=== PATIENT | female | born 1965 ===

== ENCOUNTER 2017-05-14 20:31 | Observation (INO) | payer MEDICARE, OTHER ==
--- NOTE | 2017-05-14 21:33 | C.PDOC ---
History Of Present Illness 51 year old female with a Hx of HTN, previous stroke, and cholecystectomy presents to the ER today with a complaint of left sided chest pain that she describes as heaviness since yesterday, associate with subjective SOB. Denies fever or other complaints. Time Seen by Provider: 05/14/17 21:19 Chief Complaint (Nursing): Chest Pain History Per: Patient History/Exam Limitations: no limitations Onset/Duration Of Symptoms: Hrs Current Symptoms Are (Timing): Still Present Quality: Other (Heaviness) Associated Symptoms: denies: Nausea, Dyspnea, Diaphoresis, Syncope Modifying Factors: None Exacerbating Factors: None Alleviating Factors: None Recent travel outside of the [place]: No Past Medical History Reviewed: Historical Data, Nursing Documentation, Vital Signs Vital Signs: Last Vital Signs Temp 97.9 F 05/15/17 15:40 Pulse 68 05/15/17 15:40 Resp 18 05/15/17 15:40 BP 100/69 05/15/17 15:40 Pulse Ox 100 05/15/17 15:40 - Medical History PMH: Anemia, Asthma, Depression, HTN Surgical History: Back Surgery Family History: States: Unknown Family Hx - Social History Hx Alcohol Use: No Hx Substance Use: No - Immunization History Hx Tetanus Toxoid Vaccination: No Hx Influenza Vaccination: No Hx Pneumococcal Vaccination: No Review Of Systems Constitutional: Negative for: Fever, Chills Cardiovascular: Positive for: Chest Pain. Negative for: Palpitations Respiratory: Positive for: Shortness of Breath (Subjective) Gastrointestinal: Negative for: Nausea, Vomiting Physical Exam - Physical Exam Appears: Non-toxic Skin: Normal Color, Warm, Dry Head: Atraumatic, Normacephalic Eye(s): bilateral: Normal Inspection Oral Mucosa: Moist Chest: Symmetrical Cardiovascular: Rhythm Regular Respiratory: Normal Breath Sounds, No Rales, No Rhonchi, No Wheezing Gastrointestinal/Abdominal: Soft, Tenderness (Mild RUQ), No Guarding, No Rebound Extremity: Normal ROM (x4) Neurological/Psych: Oriented x3, Normal Speech ED Course And Treatment - Laboratory Results Result Diagrams: 05/14/17 21:54 05/14/17 21:54 ECG: Interpreted By Me, Viewed By Me ECG Rhythm: Sinus Rhythm ECG Interpretation: Normal Interpretation Of ECG: Nonspecific ST/T wave changes. No previous for comparison. Rate From EC O2 Sat by Pulse Oximetry: 100 (Room air) Pulse Ox Interpretation: Normal Medical Decision Making Medical Decision Making: cp ro acs- labs imaging pediing Plan: * Blood work * CXR * EKG * Urinalysis * labs unremarkable. pt with persistent abd ttp. ct added. case discussed with dr douglas, accepts for admission. pt took asa today. Disposition - Disposition Disposition: HOSPITALIZED Disposition Time: 01:00 Condition: STABLE - Clinical Impression Clinical Impression: Chest pain, Ileus - Scribe Statement The provider has reviewed the documentation as recorded by the Scribe Declan Moss All medical record entries made by the Vidhyaibe were at my direction and personally dictated by me. I have reviewed the chart and agree that the record accurately reflects my personal performance of the history, physical exam, medical decision making, and the department course for this patient. I have also personally directed, reviewed, and agree with the discharge instructions and disposition. Decision To Admit - Pt Status Changed To: Hospital Disposition Of: Observation - . Bed Request Type: Telemetry Admitting Physician: Claire Douglas Patient Diagnosis: Chest pain, Ileus
[2017-05-14 21:59] LABS: BASO % 0.6 % (0.0-2.0); EOS # 0.2 K/uL (0.0-0.7); EOS % 2.5 % (0.0-4.0); HEMOGLOBIN 11.7 g/dL (11.0-16.0); LYMPH # 2.7 K/uL (1.0-4.3); LYMPH % 44.6 % (20.0-40.0); MEAN CELL VOLUME 77.1 fL (81.0-99.0); MEAN CORPUSCULAR HEMOGLOBIN 24.6 pg (27.0-31.0); MEAN CORPUSCULAR HGB CONC 31.8 g/dL (33.0-37.0); MEAN PLATELET VOLUME 7.8 fL (7.2-11.7); MONO # 0.5 K/uL (0.0-0.8); MONO % 7.5 % (0.0-10.0); NEUT # 2.7 K/uL (1.8-7.0); NEUT % 44.8 % (50.0-75.0); NRBC % 0.1 % (0.0-2.0); RBC 4.77 Mil/uL (3.80-5.20); RED CELL DISTRIBUTION WIDTH 20.3 % (11.5-14.5); WHITE BLOOD COUNT 6.1 K/uL (4.8-10.8)
[2017-05-14 22:09] LABS: D DIMER < 200 ng/mlDDU (0-243); PARTIAL THROMBOPLASTIN TIME 36 SECONDS (21-34); PROTHROMBIN TIME 11.2 SECONDS (9.7-12.2)
[2017-05-14 22:11] LABS: ALB/GLOB RATIO 1.1 (1.0-2.1); ALBUMIN 4.2 g/dL (3.5-5.0); ALT/SGPT 28 U/L (9-52); AST/SGOT 25 U/L (14-36); BILIRUBIN,DIRECT 0.4 mg/dL (0.0-0.4); BLOOD UREA NITROGEN 10 mg/dL (7-17); CALCIUM 8.7 mg/dl (8.6-10.4); GFR AFRICAN-AMERICAN > 60; GFR NON-AFRICAN AMERICAN > 60; LIPASE 31 U/L (23-300)
[2017-05-14 22:53] LABS: B-TYPE NATRIURETIC PEPTIDE 41.9 pg/mL (0-900)
[2017-05-14] MEDS ORDERED: Iodixanol 320 MG/ML 100 ML BOTTLE IV ONE (23:15)
[2017-05-14 23:32] LABS: SQUAMOUS EPITHIAL 3 /hpf (0-5); URINE BILIRUBIN NEGATIVE (NEGATIVE); URINE BLOOD NEGATIVE (NEGATIVE); URINE CLARITY Clear (Clear); URINE COLOR Yellow (YELLOW); URINE GLUCOSE (UA) NORMAL (Normal); URINE LEUKOCYTE ESTERASE NEG Leu/uL (Negative); URINE PROTEIN NEGATIVE (NEGATIVE)
--- NOTE | 2017-05-15 00:16 | CT ---
EXAM: CT Abdomen and Pelvis With Intravenous Contrast EXAM DATE/TIME: 05/14/2017 11:07 PM CLINICAL HISTORY: 51 years old, female; Pain; Abdominal pain and other: Right lower pain; Prior surgery; Surgery type: Gastric pypass and back surgery; Additional info: Ruq/right flank pain TECHNIQUE: Axial computed tomography images of the abdomen and pelvis with intravenous contrast. All CT scans at this facility use one or more dose reduction techniques, viz.: automated exposure control; ma/kV adjustment per patient size (including targeted exams where dose is matched to indication; i.e. head); or iterative reconstruction technique. Coronal and sagittal reformatted images were created and reviewed. CONTRAST: 100 mL of [id number] administered intravenously. COMPARISON: There are no prior studies for comparison. FINDINGS: Lower thorax: The heart is mildly enlarged. There is a hiatal hernia. There is dependent atelectasis at the lung bases. There is scarring at the lung bases. ABDOMEN: Liver: There is fatty infiltration of the liver. Gallbladder and bile ducts: Gallbladder is absent.There is prominence of the common duct. Pancreas: Pancreas is mildly atrophic. Spleen: unremarkable Adrenals: unremarkable Kidneys and ureters: unremarkable Stomach and bowel: There postsurgical changes of gastric bypass. Small bowel of the Filipe loop is mildly distended with fluid. There is mild gaseous distention of jejunal loops distal to the gastrojejunal anastomosis. There is a large bolus of enteric contents of the enteral anastomosis. Small bowel distal to the anastomosis is mildly dilated and filled with air and fluid. There is fecalization of the terminal ileum. Appendix is unremarkable. Colon is incompletely distended which limits evaluation.There is diverticulosis. Appendix: See stomach and bowel PELVIS: Bladder: unremarkable Reproductive: Uterus and adnexal structures are unremarkable. ABDOMEN and PELVIS: Intraperitoneal space: There is no free air or free fluid. Bones/joints: There are degenerative changes in the osseus structures. Soft tissues: There is a small fat containing umbilical hernia. Vasculature: There are calcified phleboliths. There are vascular calcifications. Lymph nodes: There is no pathologic adenopathy. IMPRESSION: Prominent common duct status post cholecystectomy; fatty liver, no acute solid visceral abnormality; gastric bypass, large enteric bolus at the anastomosis mild distention of the Filipe loop and proximal jejunum suggesting partial obstruction; mild distention of distal small bowel with air and fluid more suggestive of ileus than obstruction; no CT findings of appendicitis or diverticulitis Additional nonemergent findings as described above.
[2017-05-15] MEDS ORDERED: Sodium Chloride 0.9% 1,000 ML IV SCH (01:00)
--- NOTE | 2017-05-15 09:02 | RAD ---
PROCEDURE: CHEST RADIOGRAPH, 1 VIEW HISTORY: chest pain COMPARISON: None available. FINDINGS: LUNGS: Clear. PLEURA: No pneumothorax or pleural fluid seen. CARDIOVASCULAR: Normal. OSSEOUS STRUCTURES: No significant abnormalities. VISUALIZED UPPER ABDOMEN: Normal. OTHER FINDINGS: None. IMPRESSION: No active disease.
[2017-05-15] MEDS ORDERED: Oxycodone/Acetaminophen 5/325 mg Tab PO PRN (09:36)
[2017-05-15] MEDS ORDERED: Home Med 1 UNIT (Meloxicam [Mobic] 15 MG) PO SCH (10:00)
[2017-05-15] MEDS ORDERED: Home Med 1 UNIT (Omeprazole [Omeprazole] 40 MG) PO SCH (10:00)
[2017-05-15] MEDS ORDERED: Home Med 1 UNIT (Acarbose [Precose] 100 MG) PO SCH (10:00)
[2017-05-15 12:11] LABS: CK-MB < 0.22 ng/mL (0.0-3.38)
[2017-05-15] MEDS: Enoxaparin 40 mg Syringe SC SCH (12:12)
[2017-05-15] MEDS: Pantoprazole 40 mg EC Tab PO SCH (12:13)
[2017-05-15] MEDS: (Novolog) Insulin Aspart, Recombinant 100 u/ml 10 ml vial SC SCH ×3 (12:14→21:16)
[2017-05-15] MEDS: Dextrose 5%/0.45% NS 1,000 ML IV SCH ×2 (13:06→22:20)
--- NOTE | 2017-05-15 13:29 | CP.PCM.CON ---
History of Present Illness - History of Present Illness History of Present Illness: 51 y/o with CP + Aching in upper sternal region, localized, chest wall, reproducible No radiation No associated diaphoresis, N/V, SOB Overall patient is minimally active with chronic pain in neck, lumbar spine, L. hand and r. elbow: resulting from in accident in past PMH: Anemia chronic stable, Asthma mild intermittent, Depression chronic stable , HTN chronic stable * Reports CVA 6 years ago--> LUE and LLE is mildly weak as residual. Patient reports BP was high in past... Surgical History: Back Surgery, cervical fusion, L. hand/wrist, R. elbow, Gall bladder Family History: States: Unknown Family Hx - Social History Hx Alcohol Use: No Hx Substance Use: No [employer]: No Review of Systems - Review of Systems All systems: reviewed and no additional remarkable complaints except Past Patient History - Infectious Disease Hx of Infectious Diseases: None - Past Social History Smoking Status: Never Smoked - CARDIAC Hx Hypertension: Yes - PULMONARY Hx Asthma: Yes - NEUROLOGICAL HX Cerebrovascular Accident: Yes - ENDOCRINE/METABOLIC Hx Diabetes Mellitus Type 2: Yes - HEMATOLOGICAL/ONCOLOGICAL Hx Anemia: Yes - GASTROINTESTINAL Hx Gastrointestinal Disorders: No - PSYCHIATRIC Hx Depression: Yes Hx Substance Use: No - SURGICAL HISTORY Hx Gastric Bypass Surgery: Yes Hx Tubal Ligation: Yes Other/Comment: Neck fusion - ANESTHESIA Hx Anesthesia: Yes Hx Anesthesia Reactions: No Meds Allergies/Adverse Reactions: Allergies Allergy/AdvReac Type Severity Reaction Status Date / Time codeine Allergy Verified 05/14/17 21:03 metformin Allergy Verified 05/14/17 21:03 - Medications Medications: Current Medications Acetaminophen (Tylenol 325mg Tab) 650 mg PO Q6 PRN PRN Reason: Headache Albuterol (Ventolin Hfa 90 Mcg/Actuation (8 G)) 2 puff IH RQ6 [facility] Aspirin (Aspirin) 325 mg PO DAILY [facility] Last Admin: 05/15/17 12:13 Dose: 325 mg Docusate Sodium (Colace) 100 mg PO BID [facility] Last Admin: 05/15/17 12:13 Dose: 100 mg Enoxaparin Sodium (Lovenox) 40 mg SC DAILY [facility] Last Admin: 05/15/17 12:12 Dose: 40 mg Gabapentin (Neurontin) 800 mg PO TID [facility] Last Admin: 05/15/17 12:13 Dose: 800 mg Home Med (Meloxicam [Mobic]) 15 mg PO DAILY [facility] Dextrose/Sodium Chloride (Dextrose 5%/0.45% Ns 1000 Ml) 1,000 mls @ 100 mls/hr IV .Q10H [facility] Last Admin: 05/15/17 13:06 Dose: 100 mls/hr Insulin Aspart (Novolog) 0 unit SC ACHS [facility] PRN Reason: Protocol Last Admin: 05/15/17 12:14 Dose: Not Given Metoprolol Tartrate (Lopressor) 50 mg PO DAILY [facility] Last Admin: 05/15/17 12:13 Dose: Not Given Montelukast Sodium (Singulair) 10 mg PO HS [facility] Oxycodone/Acetaminophen (Percocet 5/325 Mg Tab) 1 tab PO Q4 PRN PRN Reason: Pain, Mild (1-3) Stop: 05/18/17 09:37 Last Admin: 05/15/17 12:15 Dose: 1 tab Pantoprazole Sodium (Protonix Ec Tab) 40 mg PO DAILY [facility] Last Admin: 05/15/17 12:13 Dose: 40 mg Fluticasone/Salmeterol (Advair Diskus 250/50) 1 puff INH RQ12 [facility] Physical Exam - Constitutional Appears: No Acute Distress - Head Exam Head Exam: ATRAUMATIC, NORMAL INSPECTION, NORMOCEPHALIC - Eye Exam Eye Exam: EOMI, Normal appearance, PERRL - ENT Exam ENT Exam: Mucous Membranes Moist - Neck Exam Neck exam: Positive for: Normal Inspection - Respiratory Exam Respiratory Exam: Clear to Auscultation Bilateral, NORMAL BREATHING PATTERN. absent: Rhonchi, Wheezes - Cardiovascular Exam Cardiovascular Exam: REGULAR RHYTHM, +S1, +S2. absent: +S4, Systolic Murmur - GI/Abdominal Exam GI & Abdominal Exam: Normal Bowel Sounds, Soft. absent: Tenderness - Extremities Exam Extremities exam: Positive for: normal inspection, pedal pulses present. Negative for: calf tenderness, pedal edema - Neurological Exam Neurological exam: Alert, Normal Gait, Oriented x3 - Psychiatric Exam Psychiatric exam: Normal Affect, Normal Mood - Skin Skin Exam: Normal Color, Warm Results - Vital Signs Recent Vital Signs: Last Vital Signs Temp 97.4 F L 05/15/17 08:56 Pulse 58 L 05/15/17 08:56 Resp 20 05/15/17 08:56 BP 106/70 05/15/17 08:56 Pulse Ox 98 05/15/17 12:46 - Labs Result Diagrams: 05/14/17 21:54 05/14/17 21:54 Labs: Laboratory Results - last 24 hr 05/14/17 05/14/17 05/14/17 21:54 21:54 21:54 WBC 6.1 RBC 4.77 Hgb 11.7 Hct 36.8 MCV 77.1 L MCH 24.6 L MCHC 31.8 L RDW 20.3 H Plt Count 313 MPV 7.8 Neut % (Auto) 44.8 L Lymph % (Auto) 44.6 H [place] % (Auto) 7.5 Eos % (Auto) 2.5 Baso % (Auto) 0.6 Neut # (Auto) 2.7 Lymph # (Auto) 2.7 [place] # (Auto) 0.5 Eos # (Auto) 0.2 Baso # (Auto) 0.0 PT 11.2 INR 1.0 APTT 36 H D-Dimer, Quantitative < 200 Sodium 140 Potassium 4.1 Chloride 100 Carbon Dioxide 29 Anion Gap 16 BUN 10 Creatinine 0.7 Est GFR ( Amer) > 60 Est GFR (Non-Af Amer) > 60 POC Glucose (mg/dL) Random Glucose 91 Calcium 8.7 Total Bilirubin 0.4 Direct Bilirubin 0.4 AST 25 ALT 28 Alkaline Phosphatase 87 Total Creatine Kinase CK-MB (Mass) Troponin I < 0.0120 NT-Pro-B Natriuret Pep 41.9 Total Protein 7.9 Albumin 4.2 Globulin 3.7 Albumin/Globulin Ratio 1.1 Lipase 31 Urine Color Urine Clarity Urine pH Ur Specific [place] Urine Protein Urine Glucose (UA) Urine Ketones Urine Blood Urine Nitrate Urine Bilirubin Urine Urobilinogen Ur Leukocyte Esterase Urine WBC (Auto) Ur Squamous Epith Cells 05/14/17 05/15/17 05/15/17 23:27 11:18 12:05 WBC RBC Hgb Hct MCV MCH MCHC RDW Plt Count MPV Neut % (Auto) Lymph % (Auto) [place] % (Auto) Eos % (Auto) Baso % (Auto) Neut # (Auto) Lymph # (Auto) [place] # (Auto) Eos # (Auto) Baso # (Auto) PT INR APTT D-Dimer, Quantitative Sodium Potassium Chloride Carbon Dioxide Anion Gap BUN Creatinine Est GFR ( Amer) Est GFR (Non-Af Amer) POC Glucose (mg/dL) 75 Random Glucose Calcium Total Bilirubin Direct Bilirubin AST ALT Alkaline Phosphatase Total Creatine Kinase 21 L CK-MB (Mass) < 0.22 Troponin I < 0.0120 NT-Pro-B Natriuret Pep Total Protein Albumin Globulin Albumin/Globulin Ratio Lipase Urine Color Yellow Urine Clarity Clear Urine pH 7.0 Ur Specific [place] 1.013 Urine Protein Negative Urine Glucose (UA) Normal Urine Ketones Negative Urine Blood Negative Urine Nitrate Negative Urine Bilirubin Negative Urine Urobilinogen 2.0 H Ur Leukocyte Esterase Neg Urine WBC (Auto) 1 Ur Squamous Epith Cells 3 - EKG Data EKG Interpreted by: Myself EKG shows normal: Sinus rhythm Rate: Normal Assessment & Plan - Assessment and Plan (Free Text) Assessment: --------> CP : Atypical, chest wall, c/w musckuloskeletal strain acute on chronic : EKG is normal and enzymes negative for ACS : Exam is negative for any signs of PAD or CHF : BP and HR are WNL -> Physical therapy -> Given HTN and ASCVD(CVA) in past suggst f/u as outpatient to consider echo and stress test -----> Hx of CVA/TIA 2011 -> Cont ASA 81 -> check lipids and add statin -> Physical therapy -> BP is controlled on current RX -----> Other CT findings noted : f/u as per primary team.
--- NOTE | 2017-05-15 15:05 | CP.PCM.HP ---
Past Patient History - Infectious Disease Hx of Infectious Diseases: None - Past Social History Smoking Status: Never Smoked - CARDIAC Hx Hypertension: Yes - PULMONARY Hx Asthma: Yes - NEUROLOGICAL HX Cerebrovascular Accident: Yes - ENDOCRINE/METABOLIC Hx Diabetes Mellitus Type 2: Yes - HEMATOLOGICAL/ONCOLOGICAL Hx Anemia: Yes - GASTROINTESTINAL Hx Gastrointestinal Disorders: No - PSYCHIATRIC Hx Depression: Yes Hx Substance Use: No - SURGICAL HISTORY Hx Gastric Bypass Surgery: Yes Hx Tubal Ligation: Yes Other/Comment: Neck fusion - ANESTHESIA Hx Anesthesia: Yes Hx Anesthesia Reactions: No Meds Allergies/Adverse Reactions: Allergies Allergy/AdvReac Type Severity Reaction Status Date / Time codeine Allergy Verified 05/14/17 21:03 metformin Allergy Verified 05/14/17 21:03 Physical Exam - Constitutional Appears: Well - Head Exam Head Exam: ATRAUMATIC, NORMAL INSPECTION, NORMOCEPHALIC - Eye Exam Eye Exam: EOMI, Normal appearance, PERRL Pupil Exam: NORMAL ACCOMODATION, PERRL - ENT Exam ENT Exam: Mucous Membranes Moist, Normal Exam - Neck Exam Neck exam: Positive for: Normal Inspection - Respiratory Exam Respiratory Exam: Decreased Breath Sounds - Cardiovascular Exam Cardiovascular Exam: REGULAR RHYTHM, +S1, +S2 - GI/Abdominal Exam GI & Abdominal Exam: Diminished Bowel Sounds, Soft - Rectal Exam Rectal Exam: Deferred Results - Vital Signs Recent Vital Signs: Last Vital Signs Temp 97.4 F L 05/15/17 08:56 Pulse 58 L 05/15/17 08:56 Resp 20 05/15/17 08:56 BP 106/70 05/15/17 08:56 Pulse Ox 98 05/15/17 12:46 - Labs Result Diagrams: 05/14/17 21:54 05/14/17 21:54 Labs: Laboratory Results - last 24 hr 05/14/17 05/14/17 05/14/17 21:54 21:54 21:54 WBC 6.1 RBC 4.77 Hgb 11.7 Hct 36.8 MCV 77.1 L MCH 24.6 L MCHC 31.8 L RDW 20.3 H Plt Count 313 MPV 7.8 Neut % (Auto) 44.8 L Lymph % (Auto) 44.6 H [place] % (Auto) 7.5 Eos % (Auto) 2.5 Baso % (Auto) 0.6 Neut # (Auto) 2.7 Lymph # (Auto) 2.7 [place] # (Auto) 0.5 Eos # (Auto) 0.2 Baso # (Auto) 0.0 PT 11.2 INR 1.0 APTT 36 H D-Dimer, Quantitative < 200 Sodium 140 Potassium 4.1 Chloride 100 Carbon Dioxide 29 Anion Gap 16 BUN 10 Creatinine 0.7 Est GFR ( Amer) > 60 Est GFR (Non-Af Amer) > 60 POC Glucose (mg/dL) Random Glucose 91 Calcium 8.7 Total Bilirubin 0.4 Direct Bilirubin 0.4 AST 25 ALT 28 Alkaline Phosphatase 87 Total Creatine Kinase CK-MB (Mass) Troponin I < 0.0120 NT-Pro-B Natriuret Pep 41.9 Total Protein 7.9 Albumin 4.2 Globulin 3.7 Albumin/Globulin Ratio 1.1 Lipase 31 Urine Color Urine Clarity Urine pH Ur Specific [place] Urine Protein Urine Glucose (UA) Urine Ketones Urine Blood Urine Nitrate Urine Bilirubin Urine Urobilinogen Ur Leukocyte Esterase Urine WBC (Auto) Ur Squamous Epith Cells 05/14/17 05/15/17 05/15/17 23:27 11:18 12:05 WBC RBC Hgb Hct MCV MCH MCHC RDW Plt Count MPV Neut % (Auto) Lymph % (Auto) [place] % (Auto) Eos % (Auto) Baso % (Auto) Neut # (Auto) Lymph # (Auto) [place] # (Auto) Eos # (Auto) Baso # (Auto) PT INR APTT D-Dimer, Quantitative Sodium Potassium Chloride Carbon Dioxide Anion Gap BUN Creatinine Est GFR ( Amer) Est GFR (Non-Af Amer) POC Glucose (mg/dL) 75 Random Glucose Calcium Total Bilirubin Direct Bilirubin AST ALT Alkaline Phosphatase Total Creatine Kinase 21 L CK-MB (Mass) < 0.22 Troponin I < 0.0120 NT-Pro-B Natriuret Pep Total Protein Albumin Globulin Albumin/Globulin Ratio Lipase Urine Color Yellow Urine Clarity Clear Urine pH 7.0 Ur Specific [place] 1.013 Urine Protein Negative Urine Glucose (UA) Normal Urine Ketones Negative Urine Blood Negative Urine Nitrate Negative Urine Bilirubin Negative Urine Urobilinogen 2.0 H Ur Leukocyte Esterase Neg Urine WBC (Auto) 1 Ur Squamous Epith Cells 3
[2017-05-15] MEDS: Fluticasone-Salmeterol 250-50mcg Diskus INH SCH (20:02)
[2017-05-15] MEDS: Albuterol HFA 90 mcg/actuation (8 g) IH SCH (20:02)
--- NOTE | 2017-05-15 20:46 | CP.PCM.CON ---
<Sigifredo Ng - Last Filed: 05/15/17 20:42> History of Present Illness - History of Present Illness History of Present Illness: General Surgery Consult note for Dr. Peres This is a 51F with a PMH of HTN , DM and asthma that was admitted to [facility] for a workup for chest pain. CT in the ED was read as possible ileus so surgery was consulted. Pt reports 4 episodes of emesis today that were yellow and clear. She report that she is moving her bowels and passing gas regularly. She reports that she regularly has abdominal pain. She denies any fevers, chills or SOB. At the time of my exam she reports improvement in her chest pain. PMH: See above PSH: Cholecystectomy, Gastric bypass ALL: Codein, Metforamin Social: Denies tobacco etoh and drugs Review of Systems - Review of Systems All systems: reviewed and no additional remarkable complaints except - Cardiovascular Cardiovascular: Chest Pain - Gastrointestinal Gastrointestinal: Abdominal Pain Past Patient History - Infectious Disease Hx of Infectious Diseases: None - Past Social History Smoking Status: Never Smoked - CARDIAC Hx Hypertension: Yes - PULMONARY Hx Asthma: Yes - NEUROLOGICAL HX Cerebrovascular Accident: Yes - ENDOCRINE/METABOLIC Hx Diabetes Mellitus Type 2: Yes - HEMATOLOGICAL/ONCOLOGICAL Hx Anemia: Yes - GASTROINTESTINAL Hx Gastrointestinal Disorders: No - PSYCHIATRIC Hx Depression: Yes Hx Substance Use: No - SURGICAL HISTORY Hx Gastric Bypass Surgery: Yes Hx Tubal Ligation: Yes Other/Comment: Neck fusion - ANESTHESIA Hx Anesthesia: Yes Hx Anesthesia Reactions: No Meds Allergies/Adverse Reactions: Allergies Allergy/AdvReac Type Severity Reaction Status Date / Time codeine Allergy Verified 05/14/17 21:03 metformin Allergy Verified 05/14/17 21:03 - Medications Medications: Current Medications Acetaminophen (Tylenol 325mg Tab) 650 mg PO Q6 PRN PRN Reason: Headache Albuterol (Ventolin Hfa 90 Mcg/Actuation (8 G)) 2 puff IH RQ6 [facility] Last Admin: 05/15/17 20:02 Dose: 2 puff Aspirin (Aspirin) 325 mg PO DAILY [facility] Last Admin: 05/15/17 12:13 Dose: 325 mg Docusate Sodium (Colace) 100 mg PO BID [facility] Last Admin: 05/15/17 12:13 Dose: 100 mg Enoxaparin Sodium (Lovenox) 40 mg SC DAILY [facility] Last Admin: 05/15/17 12:12 Dose: 40 mg Gabapentin (Neurontin) 800 mg PO TID [facility] Last Admin: 05/15/17 18:34 Dose: Not Given Home Med (Meloxicam [Mobic]) 15 mg PO DAILY [facility] Dextrose/Sodium Chloride (Dextrose 5%/0.45% Ns 1000 Ml) 1,000 mls @ 100 mls/hr IV .Q10H [facility] Last Admin: 05/15/17 13:06 Dose: 100 mls/hr Insulin Aspart (Novolog) 0 unit SC ACHS [facility] PRN Reason: Protocol Last Admin: 05/15/17 18:33 Dose: Not Given Metoprolol Tartrate (Lopressor) 50 mg PO DAILY [facility] Last Admin: 05/15/17 12:13 Dose: Not Given Montelukast Sodium (Singulair) 10 mg PO HS [facility] Oxycodone/Acetaminophen (Percocet 5/325 Mg Tab) 1 tab PO Q4 PRN PRN Reason: Pain, Mild (1-3) Stop: 05/18/17 09:37 Last Admin: 05/15/17 12:15 Dose: 1 tab Pantoprazole Sodium (Protonix Ec Tab) 40 mg PO DAILY [facility] Last Admin: 05/15/17 12:13 Dose: 40 mg Fluticasone/Salmeterol (Advair Diskus 250/50) 1 puff INH RQ12 [facility] Last Admin: 05/15/17 20:02 Dose: 1 puff Physical Exam - Constitutional Appears: Non-toxic, No Acute Distress - Head Exam Head Exam: ATRAUMATIC, NORMOCEPHALIC - Eye Exam Eye Exam: EOMI, Normal appearance - ENT Exam ENT Exam: Mucous Membranes Moist - Respiratory Exam Respiratory Exam: NORMAL BREATHING PATTERN. absent: Wheezes - Cardiovascular Exam Cardiovascular Exam: +S1, +S2 - GI/Abdominal Exam GI & Abdominal Exam: Soft, Tenderness (Mild). absent: Distended, Firm, Guarding , Hernia, Rebound, Rigid - Extremities Exam Extremities exam: Positive for: normal capillary refill - Neurological Exam Neurological exam: Alert, Normal Gait, Oriented x3 - Psychiatric Exam Psychiatric exam: Normal Affect, Normal Mood - Skin Skin Exam: Dry, Intact Results - Vital Signs Recent Vital Signs: Last Vital Signs Temp 97.9 F 05/15/17 15:40 Pulse 68 05/15/17 15:40 Resp 18 05/15/17 15:40 BP 100/69 05/15/17 15:40 Pulse Ox 100 05/15/17 18:37 - Labs Result Diagrams: 05/14/17 21:54 05/14/17 21:54 Labs: Laboratory Results - last 24 hr 05/14/17 05/14/17 05/14/17 21:54 21:54 21:54 WBC 6.1 RBC 4.77 Hgb 11.7 Hct 36.8 MCV 77.1 L MCH 24.6 L MCHC 31.8 L RDW 20.3 H Plt Count 313 MPV 7.8 Neut % (Auto) 44.8 L Lymph % (Auto) 44.6 H Mckinley % (Auto) 7.5 Eos % (Auto) 2.5 Baso % (Auto) 0.6 Neut # (Auto) 2.7 Lymph # (Auto) 2.7 Mckinley # (Auto) 0.5 Eos # (Auto) 0.2 Baso # (Auto) 0.0 PT 11.2 INR 1.0 APTT 36 H D-Dimer, Quantitative < 200 Sodium 140 Potassium 4.1 Chloride 100 Carbon Dioxide 29 Anion Gap 16 BUN 10 Creatinine 0.7 Est GFR ( Amer) > 60 Est GFR (Non-Af Amer) > 60 POC Glucose (mg/dL) Random Glucose 91 Calcium 8.7 Total Bilirubin 0.4 Direct Bilirubin 0.4 AST 25 ALT 28 Alkaline Phosphatase 87 Total Creatine Kinase CK-MB (Mass) Troponin I < 0.0120 NT-Pro-B Natriuret Pep 41.9 Total Protein 7.9 Albumin 4.2 Globulin 3.7 Albumin/Globulin Ratio 1.1 Lipase 31 Urine Color Urine Clarity Urine pH Ur Specific [place] Urine Protein Urine Glucose (UA) Urine Ketones Urine Blood Urine Nitrate Urine Bilirubin Urine Urobilinogen Ur Leukocyte Esterase Urine WBC (Auto) Ur Squamous Epith Cells 05/14/17 05/15/17 05/15/17 23:27 11:18 12:05 WBC RBC Hgb Hct MCV MCH MCHC RDW Plt Count MPV Neut % (Auto) Lymph % (Auto) Mck[place] % (Auto) Eos % (Auto) Baso % (Auto) Neut # (Auto) Lymph # (Auto) Mckinley # (Auto) Eos # (Auto) Baso # (Auto) PT INR APTT D-Dimer, Quantitative Sodium Potassium Chloride Carbon Dioxide Anion Gap BUN Creatinine Est GFR ( Amer) Est GFR (Non-Af Amer) POC Glucose (mg/dL) 75 Random Glucose Calcium Total Bilirubin Direct Bilirubin AST ALT Alkaline Phosphatase Total Creatine Kinase 21 L CK-MB (Mass) < 0.22 Troponin I < 0.0120 NT-Pro-B Natriuret Pep Total Protein Albumin Globulin Albumin/Globulin Ratio Lipase Urine Color Yellow Urine Clarity Clear Urine pH 7.0 Ur Specific [place] 1.013 Urine Protein Negative Urine Glucose (UA) Normal Urine Ketones Negative Urine Blood Negative Urine Nitrate Negative Urine Bilirubin Negative Urine Urobilinogen 2.0 H Ur Leukocyte Esterase Neg Urine WBC (Auto) 1 Ur Squamous Epith Cells 3 05/15/17 16:39 WBC RBC Hgb Hct MCV MCH MCHC RDW Plt Count MPV Neut % (Auto) Lymph % (Auto) Mck[place] % (Auto) Eos % (Auto) Baso % (Auto) Neut # (Auto) Lymph # (Auto) Mck[place] # (Auto) Eos # (Auto) Baso # (Auto) PT INR APTT D-Dimer, Quantitative Sodium Potassium Chloride Carbon Dioxide Anion Gap BUN Creatinine Est GFR ( Amer) Est GFR (Non-Af Amer) POC Glucose (mg/dL) 80 Random Glucose Calcium Total Bilirubin Direct Bilirubin AST ALT Alkaline Phosphatase Total Creatine Kinase CK-MB (Mass) Troponin I NT-Pro-B Natriuret Pep Total Protein Albumin Globulin Albumin/Globulin Ratio Lipase Urine Color Urine Clarity Urine pH Ur Specific [place] Urine Protein Urine Glucose (UA) Urine Ketones Urine Blood Urine Nitrate Urine Bilirubin Urine Urobilinogen Ur Leukocyte Esterase Urine WBC (Auto) Ur Squamous Epith Cells Assessment & Plan - Assessment and Plan (Free Text) Assessment: 51F with abdominal pain NPO with ice chips Abdominal Xray in AM D/W Dr. Larisa Ng PGY2 <José Miguel Peres B - Last Filed: 05/19/17 21:29> Results - Vital Signs Recent Vital Signs: Last Vital Signs Temp 97.6 F 05/18/17 07:30 Pulse 64 05/18/17 07:30 Resp 20 05/18/17 07:30 BP 98/63 L 05/18/17 07:30 Pulse Ox 98 05/18/17 07:30 - Labs Result Diagrams: 05/14/17 21:54 05/14/17 21:54 Attending/Attestation - Attestation I have personally seen and examined this patient.: Yes I have fully participated in the care of the patient.: Yes I have reviewed all pertinent clinical information: Yes Notes (Text): Pt was seen and examined at bedside Agree with above note and assessment Pt with Upper abdominal pain Epigastric tenderness Labs and radiology reviewed Ass: Enteritis with ileus Plan: IV antibiotics NPO, IVF Lactate level AXR in am Plan d.w pt in detail Risk and benefit explained in detail.
[2017-05-16] MEDS: Albuterol HFA 90 mcg/actuation (8 g) IH SCH ×3 (01:12→19:21)
[2017-05-16] MEDS: Dextrose 5%/0.45% NS 1,000 ML IV SCH ×4 (02:00→21:24)
[2017-05-16] MEDS: (Novolog) Insulin Aspart, Recombinant 100 u/ml 10 ml vial SC SCH ×4 (07:30→21:21)
--- NOTE | 2017-05-16 07:40 | CP.PCM.PN ---
<Sigifredo Ng - Last Filed: 05/16/17 07:38> Subjective - Date & Time of Evaluation Date of Evaluation: 05/16/17 Time of Evaluation: 07:38 - Subjective Subjective: General Surgery Progress Note for Dr. Peres This 51F weas seen and examined this Am at bedside no acute events overnight. She reports that her chest pain is better and she continues to complain of her chronic abdominal pain which she reports does not feel like the prior time when she had an obstructions. She denies nause vomiting fevers or chills. She reports last BM was yesterday. Objective - Vital Signs/Intake and Output Vital Signs (last 24 hours): Temp Pulse Resp BP Pulse Ox 98.0 F 65 18 113/74 98 05/15/17 23:15 05/15/17 23:15 05/15/17 23:15 05/15/17 23:15 05/15/17 23:15 Intake and Output: 05/16/17 05/16/17 06:59 18:59 Intake Total 1650 Balance 1650 - Medications Medications: Current Medications Acetaminophen (Tylenol 325mg Tab) 650 mg PO Q6 PRN PRN Reason: Headache Albuterol (Ventolin Hfa 90 Mcg/Actuation (8 G)) 2 puff IH RQ6 [facility] Last Admin: 05/16/17 01:12 Dose: Not Given Aspirin (Aspirin) 325 mg PO DAILY [facility] Last Admin: 05/15/17 12:13 Dose: 325 mg Docusate Sodium (Colace) 100 mg PO BID [facility] Last Admin: 05/15/17 21:15 Dose: 100 mg Enoxaparin Sodium (Lovenox) 40 mg SC DAILY [facility] Last Admin: 05/15/17 12:12 Dose: 40 mg Gabapentin (Neurontin) 800 mg PO TID [facility] Last Admin: 05/15/17 18:34 Dose: Not Given Home Med (Meloxicam [Mobic]) 15 mg PO DAILY [facility] Dextrose/Sodium Chloride (Dextrose 5%/0.45% Ns 1000 Ml) 1,000 mls @ 100 mls/hr IV .Q10H [facility] Last Admin: 05/16/17 02:00 Dose: 100 mls/hr Insulin Aspart (Novolog) 0 unit SC ACHS [facility] PRN Reason: Protocol Last Admin: 05/15/17 21:16 Dose: Not Given Metoprolol Tartrate (Lopressor) 50 mg PO DAILY [facility] Last Admin: 05/15/17 12:13 Dose: Not Given Montelukast Sodium (Singulair) 10 mg PO HS [facility] Last Admin: 05/15/17 21:15 Dose: 10 mg Oxycodone/Acetaminophen (Percocet 5/325 Mg Tab) 1 tab PO Q4 PRN PRN Reason: Pain, Mild (1-3) Stop: 05/18/17 09:37 Last Admin: 05/15/17 12:15 Dose: 1 tab Pantoprazole Sodium (Protonix Ec Tab) 40 mg PO DAILY [facility] Last Admin: 05/15/17 12:13 Dose: 40 mg Fluticasone/Salmeterol (Advair Diskus 250/50) 1 puff INH RQ12 [facility] Last Admin: 05/15/17 20:02 Dose: 1 puff - Labs Labs: 05/14/17 21:54 05/14/17 21:54 PT 11.2 SECONDS (9.7-12.2) 05/14/17 21:54 INR 1.0 05/14/17 21:54 APTT 36 SECONDS (21-34) H 05/14/17 21:54 - Constitutional Appears: Non-toxic, No Acute Distress - Head Exam Head Exam: ATRAUMATIC, NORMOCEPHALIC - Eye Exam Eye Exam: EOMI, Normal appearance - ENT Exam ENT Exam: Mucous Membranes Moist - Respiratory Exam Respiratory Exam: NORMAL BREATHING PATTERN. absent: Wheezes - Cardiovascular Exam Cardiovascular Exam: +S1, +S2 - GI/Abdominal Exam GI & Abdominal Exam: Soft, Tenderness (Mild). absent: Distended, Firm, Guarding , Hernia, Rebound, Rigid - Extremities Exam Extremities exam: Positive for: normal capillary refill - Neurological Exam Neurological exam: Alert, Normal Gait, Oriented x3 - Psychiatric Exam Psychiatric exam: Normal Affect, Normal Mood - Skin Skin Exam: Dry, Intact Assessment and Plan - Assessment and Plan (Free Text) Assessment: 51F with abdominal pain Plan: NPO with ice chips Follwo up abdominal X-Ray D/W Dr. Larisa Ng PGY2 <José Miguel Peres - Last Filed: 05/19/17 21:31> Objective - Vital Signs/Intake and Output Vital Signs (last 24 hours): Temp Pulse Resp BP Pulse Ox 97.6 F 64 20 98/63 L 98 05/18/17 07:30 05/18/17 07:30 05/18/17 07:30 05/18/17 07:30 05/18/17 07:30 - Labs Labs: 05/14/17 21:54 05/14/17 21:54 PT 11.2 SECONDS (9.7-12.2) 05/14/17 21:54 INR 1.0 05/14/17 21:54 APTT 36 SECONDS (21-34) H 05/14/17 21:54 Attending/Attestation - Attestation I have personally seen and examined this patient.: Yes I have fully participated in the care of the patient.: Yes I have reviewed all pertinent clinical information, including history, physical exam and plan: Yes Notes (Text): Pt was seen and examined at bedside Agree with above note and assessment Pt is improving AXR is normal Mild abdominal tenderness full liquid diet GI consult appreciated Plan d.w pt in detail
[2017-05-16] MEDS: Fluticasone-Salmeterol 250-50mcg Diskus INH SCH ×2 (08:30→19:21)
[2017-05-16] MEDS ORDERED: Influenza Vaccine 60 mcg/0.5 mL SYR (4YR UP) IM ONE (10:00)
[2017-05-16] MEDS: Pantoprazole 40 mg EC Tab PO SCH (10:44)
[2017-05-16] MEDS: Enoxaparin 40 mg Syringe SC SCH (10:44)
--- NOTE | 2017-05-16 10:54 | RAD ---
HISTORY: ileus COMPARISON: No prior. FINDINGS: BOWEL: Normal. No obstruction. No free air. BONES: Normal. OTHER FINDINGS: None. IMPRESSION: No active disease.
[2017-05-16 12:09] LABS: CK-MB < 0.22 ng/mL (0.0-3.38)
--- NOTE | 2017-05-16 13:43 | CP.PCM.CON ---
<Fernando Arce - Last Filed: 05/16/17 13:40> History of Present Illness - History of Present Illness History of Present Illness: PGY4 GI initial consult Lluvia Sow is a 51F with a PMH of HTN , DM, gastric bypass and asthma that was admitted to chest pain. A CT in the ED revealed possible SBO versus ileus. Pt reports 4 episodes of emesis yesterday that were yellow and clear. She denies any hematemesis, coffee-ground emesis, or melena. She report that she is moving her bowels and passing gas regularly. She denies any fevers, chills or SOB. Today in the AM, she denies any abd pain and is tolerating a regular diet of bagel and cream cheese. She had a BM in the morning and denies any abd pain. PMH: See above PSH: Cholecystectomy, Gastric bypass Social: Denies tobacco etoh and drugs ROS: 12 point ROS conducted neg other than boave ENdo hx: colonoscopy 2 years ago and normal as per pt Past Patient History - Infectious Disease Hx of Infectious Diseases: None - Past Social History Smoking Status: Never Smoked - CARDIAC Hx Hypertension: Yes - PULMONARY Hx Asthma: Yes - NEUROLOGICAL HX Cerebrovascular Accident: Yes - ENDOCRINE/METABOLIC Hx Diabetes Mellitus Type 2: Yes - HEMATOLOGICAL/ONCOLOGICAL Hx Anemia: Yes - GASTROINTESTINAL Hx Gastrointestinal Disorders: No - PSYCHIATRIC Hx Depression: Yes Hx Substance Use: No - SURGICAL HISTORY Hx Gastric Bypass Surgery: Yes Hx Tubal Ligation: Yes Other/Comment: Neck fusion - ANESTHESIA Hx Anesthesia: Yes Hx Anesthesia Reactions: No Meds Allergies/Adverse Reactions: Allergies Allergy/AdvReac Type Severity Reaction Status Date / Time codeine Allergy Verified 05/14/17 21:03 metformin Allergy Verified 05/14/17 21:03 - Medications Medications: Current Medications Acetaminophen (Tylenol 325mg Tab) 650 mg PO Q6 PRN PRN Reason: Headache Albuterol (Ventolin Hfa 90 Mcg/Actuation (8 G)) 2 puff IH RQ6 [facility] Last Admin: 05/16/17 08:30 Dose: 2 puff Aspirin (Aspirin) 325 mg PO DAILY [facility] Last Admin: 05/16/17 10:44 Dose: 325 mg Docusate Sodium (Colace) 100 mg PO BID [facility] Last Admin: 05/16/17 10:44 Dose: 100 mg Enoxaparin Sodium (Lovenox) 40 mg SC DAILY [facility] Last Admin: 05/16/17 10:44 Dose: 40 mg Gabapentin (Neurontin) 800 mg PO TID [facility] Last Admin: 05/16/17 10:44 Dose: 800 mg Home Med (Meloxicam [Mobic]) 15 mg PO DAILY [facility] Dextrose/Sodium Chloride (Dextrose 5%/0.45% Ns 1000 Ml) 1,000 mls @ 100 mls/hr IV .Q10H [facility] Last Admin: 05/16/17 11:45 Dose: 100 mls/hr Insulin Aspart (Novolog) 0 unit SC ACHS [facility] PRN Reason: Protocol Last Admin: 05/16/17 11:42 Dose: Not Given Metoprolol Tartrate (Lopressor) 50 mg PO DAILY [facility] Last Admin: 05/16/17 10:44 Dose: 50 mg Montelukast Sodium (Singulair) 10 mg PO HS [facility] Last Admin: 05/15/17 21:15 Dose: 10 mg Oxycodone/Acetaminophen (Percocet 5/325 Mg Tab) 1 tab PO Q4 PRN PRN Reason: Pain, Mild (1-3) Stop: 05/18/17 09:37 Last Admin: 05/15/17 12:15 Dose: 1 tab Pantoprazole Sodium (Protonix Ec Tab) 40 mg PO DAILY [facility] Last Admin: 05/16/17 10:44 Dose: 40 mg Fluticasone/Salmeterol (Advair Diskus 250/50) 1 puff INH RQ12 [facility] Last Admin: 05/16/17 08:30 Dose: 1 puff Physical Exam - Constitutional Appears: Well, No Acute Distress - Head Exam Head Exam: ATRAUMATIC, NORMOCEPHALIC - Eye Exam Eye Exam: EOMI, Normal appearance - ENT Exam ENT Exam: Mucous Membranes Moist, Normal Exam - Neck Exam Neck exam: Positive for: Normal Inspection - Respiratory Exam Respiratory Exam: Clear to Auscultation Bilateral, NORMAL BREATHING PATTERN. absent: Rales, Rhonchi, Wheezes, Respiratory Distress - Cardiovascular Exam Cardiovascular Exam: REGULAR RHYTHM, +S1, +S2 - GI/Abdominal Exam GI & Abdominal Exam: Normal Bowel Sounds, Soft. absent: Distended, Firm, Guarding, Tenderness - Rectal Exam Rectal Exam: NORMAL INSPECTION - Extremities Exam Extremities exam: Negative for: joint swelling, pedal edema - Neurological Exam Neurological exam: Alert, Oriented x3 - Psychiatric Exam Psychiatric exam: Normal Affect, Normal Mood - Skin Skin Exam: Dry, Intact, Normal Color, Warm Results - Vital Signs Recent Vital Signs: Last Vital Signs Temp 98 F 05/16/17 08:07 Pulse 69 05/16/17 08:07 Resp 18 05/16/17 08:07 BP 106/69 05/16/17 08:07 Pulse Ox 100 05/16/17 08:07 - Labs Result Diagrams: 05/14/17 21:54 05/14/17 21:54 Labs: Laboratory Results - last 24 hr 05/15/17 05/15/17 05/15/17 16:39 21:09 21:15 POC Glucose (mg/dL) 80 133 H Lactic Acid 1.4 Total Creatine Kinase CK-MB (Mass) Troponin I 05/16/17 05/16/17 05/16/17 06:12 11:02 11:25 POC Glucose (mg/dL) 79 79 Lactic Acid Total Creatine Kinase 21 L CK-MB (Mass) < 0.22 Troponin I < 0.0120 Assessment & Plan - Assessment and Plan (Free Text) Assessment: Lluvia Sow is a 51F with a PMH of HTN , DM, gastric bypass and asthma that was admitted to chest pain. CT revealed ileus vs SBO Ileus hx of gastric bypass abd pain Nausea/vomiting (resolved) Plan: -tolerating diet -recommend gastric bypass diet -smaller portion -avoid narcotic -had a BM -no more emesis -no Gi intervention indicated at this time D/W Dr. little <Jordin Little - Last Filed: 05/16/17 15:46> Meds - Medications Medications: Current Medications Acetaminophen (Tylenol 325mg Tab) 650 mg PO Q6 PRN PRN Reason: Headache Albuterol (Ventolin Hfa 90 Mcg/Actuation (8 G)) 2 puff IH RQ6 [facility] Last Admin: 05/16/17 08:30 Dose: 2 puff Aspirin (Aspirin) 325 mg PO DAILY [facility] Last Admin: 05/16/17 10:44 Dose: 325 mg Docusate Sodium (Colace) 100 mg PO BID [facility] Last Admin: 05/16/17 10:44 Dose: 100 mg Enoxaparin Sodium (Lovenox) 40 mg SC DAILY [facility] Last Admin: 03/18/18 10:44 Dose: 40 mg Gabapentin (Neurontin) 800 mg PO TID [facility] Last Admin: 05/16/17 10:44 Dose: 800 mg Home Med (Meloxicam [Mobic]) 15 mg PO DAILY [facility] Dextrose/Sodium Chloride (Dextrose 5%/0.45% Ns 1000 Ml) 1,000 mls @ 100 mls/hr IV .Q10H [facility] Last Admin: 05/16/17 11:45 Dose: 100 mls/hr Insulin Aspart (Novolog) 0 unit SC ACHS [facility] PRN Reason: Protocol Last Admin: 05/16/17 11:42 Dose: Not Given Metoprolol Tartrate (Lopressor) 50 mg PO DAILY [facility] Last Admin: 05/16/17 10:44 Dose: 50 mg Montelukast Sodium (Singulair) 10 mg PO HS [facility] Last Admin: 05/15/17 21:15 Dose: 10 mg Oxycodone/Acetaminophen (Percocet 5/325 Mg Tab) 1 tab PO Q4 PRN PRN Reason: Pain, Mild (1-3) Stop: 05/18/17 09:37 Last Admin: 05/15/17 12:15 Dose: 1 tab Pantoprazole Sodium (Protonix Ec Tab) 40 mg PO DAILY [facility] Last Admin: 05/16/17 10:44 Dose: 40 mg Fluticasone/Salmeterol (Advair Diskus 250/50) 1 puff INH RQ12 [facility] Last Admin: 05/16/17 08:30 Dose: 1 puff Results - Vital Signs Recent Vital Signs: Last Vital Signs Temp 98 F 05/16/17 08:07 Pulse 69 05/16/17 08:07 Resp 18 05/16/17 08:07 BP 106/69 05/16/17 08:07 Pulse Ox 100 05/16/17 08:07 - Labs Result Diagrams: 05/14/17 21:54 05/14/17 21:54 Labs: Laboratory Results - last 24 hr 05/15/17 05/15/17 05/15/17 16:39 21:09 21:15 POC Glucose (mg/dL) 80 133 H Lactic Acid 1.4 Total Creatine Kinase CK-MB (Mass) Troponin I 05/16/17 05/16/17 05/16/17 06:12 11:02 11:25 POC Glucose (mg/dL) 79 79 Lactic Acid Total Creatine Kinase 21 L CK-MB (Mass) < 0.22 Troponin I < 0.0120 Attending/Attestation - Attestation I have personally seen and examined this patient.: Yes I have fully participated in the care of the patient.: Yes I have reviewed all pertinent clinical information: Yes Notes (Text): 05/16/17 15:44 Patient seen and examined with GI fellow on rounds. This is a 51 yr old F with a PMH of HTN , DM, gastric bypass and asthma that was admitted for chest pain. CT revealed ileus vs SBO. Patient was seen eating bagel with cream cheese. Moving bowels. No tenderness or guarding on physical exam. Should follow with outpatient GI for endoscopy. Continue PPI. Thank you for letting us participate in the care of your patient
--- NOTE | 2017-05-16 17:58 | CP.PCM.PN ---
Subjective - Date & Time of Evaluation Date of Evaluation: 05/16/17 Time of Evaluation: 12:00 - Subjective Subjective: clinically same Objective - Vital Signs/Intake and Output Vital Signs (last 24 hours): Temp Pulse Resp BP Pulse Ox 98.3 F 60 18 98/64 L 99 05/16/17 15:48 05/16/17 15:48 05/16/17 15:48 05/16/17 15:48 05/16/17 15:48 Intake and Output: 05/16/17 05/16/17 06:59 18:59 Intake Total 1650 1060 Balance 1650 1060 - Medications Medications: Current Medications Acetaminophen (Tylenol 325mg Tab) 650 mg PO Q6 PRN PRN Reason: Headache Albuterol (Ventolin Hfa 90 Mcg/Actuation (8 G)) 2 puff IH RQ6 [facility] Last Admin: 05/16/17 08:30 Dose: 2 puff Aspirin (Aspirin) 325 mg PO DAILY [facility] Last Admin: 05/16/17 10:44 Dose: 325 mg Docusate Sodium (Colace) 100 mg PO BID [facility] Last Admin: 05/16/17 17:53 Dose: 100 mg Enoxaparin Sodium (Lovenox) 40 mg SC DAILY [facility] Last Admin: 05/16/17 10:44 Dose: 40 mg Gabapentin (Neurontin) 800 mg PO TID [facility] Last Admin: 05/16/17 14:04 Dose: 800 mg Dextrose/Sodium Chloride (Dextrose 5%/0.45% Ns 1000 Ml) 1,000 mls @ 100 mls/hr IV .Q10H [facility] Last Admin: 05/16/17 11:45 Dose: 100 mls/hr Insulin Aspart (Novolog) 0 unit SC ACHS [facility] PRN Reason: Protocol Last Admin: 05/16/17 17:08 Dose: Not Given Metoprolol Tartrate (Lopressor) 50 mg PO DAILY [facility] Last Admin: 05/16/17 10:44 Dose: 50 mg Montelukast Sodium (Singulair) 10 mg PO HS [facility] Last Admin: 05/15/17 21:15 Dose: 10 mg Oxycodone/Acetaminophen (Percocet 5/325 Mg Tab) 1 tab PO Q4 PRN PRN Reason: Pain, Mild (1-3) Stop: 05/18/17 09:37 Last Admin: 05/15/17 12:15 Dose: 1 tab Pantoprazole Sodium (Protonix Ec Tab) 40 mg PO DAILY [facility] Last Admin: 05/16/17 10:44 Dose: 40 mg Fluticasone/Salmeterol (Advair Diskus 250/50) 1 puff INH RQ12 [facility] Last Admin: 05/16/17 08:30 Dose: 1 puff - Labs Labs: 05/14/17 21:54 05/14/17 21:54 PT 11.2 SECONDS (9.7-12.2) 05/14/17 21:54 INR 1.0 05/14/17 21:54 APTT 36 SECONDS (21-34) H 05/14/17 21:54 - Constitutional Appears: Well - Head Exam Head Exam: ATRAUMATIC, NORMAL INSPECTION, NORMOCEPHALIC - Eye Exam Eye Exam: EOMI, Normal appearance, PERRL Pupil Exam: NORMAL ACCOMODATION, PERRL - ENT Exam ENT Exam: Mucous Membranes Moist, Normal Exam - Neck Exam Neck Exam: Full ROM, Normal Inspection. absent: Lymphadenopathy - Respiratory Exam Respiratory Exam: Decreased Breath Sounds - Cardiovascular Exam Cardiovascular Exam: REGULAR RHYTHM, +S1, +S2 - GI/Abdominal Exam GI & Abdominal Exam: Soft, Diminished Bowel Sounds - Rectal Exam Rectal Exam: Deferred
[2017-05-17 00:25] VITALS: RESP 20
[2017-05-17] MEDS: Albuterol HFA 90 mcg/actuation (8 g) IH SCH ×3 (01:21→19:42)
--- NOTE | 2017-05-17 07:38 | CP.PCM.PN ---
<Viki Blake - Last Filed: 05/17/17 07:36> Subjective - Date & Time of Evaluation Date of Evaluation: 05/17/17 Time of Evaluation: 07:36 - Subjective Subjective: Surgery: Dr. Peres Pt seen and examined. No acute overnight events. States she feels a lot better, is tolerating her diet and having BMs. Pain has completely resolved. Denies N/V , F/C. Objective - Vital Signs/Intake and Output Vital Signs (last 24 hours): Temp Pulse Resp BP Pulse Ox 97.9 F 64 20 101/66 98 05/16/17 23:05 05/16/17 23:05 05/16/17 23:05 05/16/17 23:05 05/16/17 23:05 Intake and Output: 05/17/17 05/17/17 06:59 18:59 Intake Total 2220 Balance 2220 - Medications Medications: Current Medications Acetaminophen (Tylenol 325mg Tab) 650 mg PO Q6 PRN PRN Reason: Headache Albuterol (Ventolin Hfa 90 Mcg/Actuation (8 G)) 2 puff IH RQ6 [facility] Last Admin: 05/17/17 01:21 Dose: Not Given Aspirin (Aspirin) 325 mg PO DAILY [facility] Last Admin: 05/16/17 10:44 Dose: 325 mg Docusate Sodium (Colace) 100 mg PO BID [facility] Last Admin: 05/16/17 17:53 Dose: 100 mg Enoxaparin Sodium (Lovenox) 40 mg SC DAILY [facility] Last Admin: 05/16/17 10:44 Dose: 40 mg Gabapentin (Neurontin) 800 mg PO TID [facility] Last Admin: 05/16/17 20:17 Dose: 800 mg Dextrose/Sodium Chloride (Dextrose 5%/0.45% Ns 1000 Ml) 1,000 mls @ 100 mls/hr IV .Q10H [facility] Last Admin: 05/16/17 21:24 Dose: 100 mls/hr Insulin Aspart (Novolog) 0 unit SC ACHS [facility] PRN Reason: Protocol Last Admin: 05/16/17 21:21 Dose: Not Given Metoprolol Tartrate (Lopressor) 50 mg PO DAILY [facility] Last Admin: 05/16/17 10:44 Dose: 50 mg Montelukast Sodium (Singulair) 10 mg PO HS [facility] Last Admin: 05/16/17 21:22 Dose: 10 mg Oxycodone/Acetaminophen (Percocet 5/325 Mg Tab) 1 tab PO Q4 PRN PRN Reason: Pain, Mild (1-3) Stop: 05/18/17 09:37 Last Admin: 05/15/17 12:15 Dose: 1 tab Pantoprazole Sodium (Protonix Ec Tab) 40 mg PO DAILY [facility] Last Admin: 05/16/17 10:44 Dose: 40 mg Fluticasone/Salmeterol (Advair Diskus 250/50) 1 puff INH RQ12 [facility] Last Admin: 05/16/17 19:21 Dose: Not Given - Labs Labs: 05/14/17 21:54 05/14/17 21:54 PT 11.2 SECONDS (9.7-12.2) 05/14/17 21:54 INR 1.0 05/14/17 21:54 APTT 36 SECONDS (21-34) H 05/14/17 21:54 - Constitutional Appears: Well, No Acute Distress - Head Exam Head Exam: ATRAUMATIC, NORMOCEPHALIC - Eye Exam Eye Exam: Normal appearance - ENT Exam ENT Exam: Mucous Membranes Moist - Respiratory Exam Respiratory Exam: NORMAL BREATHING PATTERN - Cardiovascular Exam Cardiovascular Exam: RRR - GI/Abdominal Exam GI & Abdominal Exam: Soft. absent: Distended, Guarding, Tenderness - Neurological Exam Neurological Exam: Alert, Awake Assessment and Plan - Assessment and Plan (Free Text) Assessment: 51F admitted for ileus Plan: - clear for DC from surgical standpoint - d/w Dr. Larisa Blake, PGY-3 <José Miguel Peres B - Last Filed: 05/19/17 21:32> Objective - Vital Signs/Intake and Output Vital Signs (last 24 hours): Temp Pulse Resp BP Pulse Ox 97.6 F 64 20 98/63 L 98 05/18/17 07:30 05/18/17 07:30 05/18/17 07:30 05/18/17 07:30 05/18/17 07:30 - Labs Labs: 05/14/17 21:54 05/14/17 21:54 PT 11.2 SECONDS (9.7-12.2) 05/14/17 21:54 INR 1.0 05/14/17 21:54 APTT 36 SECONDS (21-34) H 05/14/17 21:54 Attending/Attestation - Attestation I have personally seen and examined this patient.: Yes I have fully participated in the care of the patient.: Yes I have reviewed all pertinent clinical information, including history, physical exam and plan: Yes Notes (Text): Pt was seen and examined at bedside Agree with above note and assessment Pt with mild abdominal pain CT scan of A/P pending IF CT normal, Pt can be DC home f.u as outpt. Plan d.w pt in detail Risk and benefit explained in detail.
[2017-05-17] MEDS: (Novolog) Insulin Aspart, Recombinant 100 u/ml 10 ml vial SC SCH ×4 (08:06→22:01)
[2017-05-17] MEDS: Fluticasone-Salmeterol 250-50mcg Diskus INH SCH ×2 (08:22→19:42)
[2017-05-17] MEDS: Enoxaparin 40 mg Syringe SC SCH (09:52)
[2017-05-17] MEDS: Pantoprazole 40 mg EC Tab PO SCH (09:52)
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
[2017-05-17] MEDS: Dextrose 5%/0.45% NS 1,000 ML IV SCH ×2 (14:45→17:42)
[2017-05-17] MEDS ORDERED: Iohexol 240 (50 ml) PO ONE (15:00)
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
--- NOTE | 2017-05-17 18:26 | CT ---
PROCEDURE: CT Abdomen and Pelvis with contrast HISTORY: Possible small bowel obstruction. Relevant surgical history: History of gastric bypass. COMPARISON: 05/14/2017 CT abdomen and pelvis. TECHNIQUE: Oral contrast only. Radiation dose: Total exam DLP = 633.91 mGy-cm. This CT exam was performed using one or more of the following dose reduction techniques: Automated exposure control, adjustment of the mA and/or kV according to patient size, and/or use of iterative reconstruction technique. FINDINGS: LOWER THORAX: Unremarkable. LIVER: Unremarkable. No gross lesion or ductal dilatation. GALLBLADDER AND BILE DUCTS: Status post cholecystectomy. No abnormality is seen in the gallbladder fossa. PANCREAS: Unremarkable. No gross lesion or ductal dilatation. SPLEEN: Unremarkable. ADRENALS: Unremarkable. No mass. KIDNEYS AND URETERS: Unremarkable. No hydronephrosis. No solid mass. VASCULATURE: Unremarkable. No aortic aneurysm. BOWEL: No abnormalities status post gastric bypass. Gastroenteric anastomosis unremarkable. Constipation without fecal impaction or obstruction. APPENDIX: Normal appendix. PERITONEUM: Unremarkable. No free fluid. No free air. LYMPH NODES: Unremarkable. No enlarged lymph nodes. BLADDER: Unremarkable. REPRODUCTIVE: Mildly enlarged uterus. BONES: No acute fracture. OTHER FINDINGS: None. IMPRESSION: No acute findings related to/accounting for the clinical presentation.
[2017-05-18] MEDS: Albuterol HFA 90 mcg/actuation (8 g) IH SCH ×2 (01:32→08:12)
[2017-05-18] MEDS: (Novolog) Insulin Aspart, Recombinant 100 u/ml 10 ml vial SC SCH ×2 (07:52→11:28)
[2017-05-18 08:08] VITALS: BP 98/63; PULSE 64; TEMP 97.6; O2SAT 98
[2017-05-18] MEDS: Fluticasone-Salmeterol 250-50mcg Diskus INH SCH (08:12)
[2017-05-18] MEDS: Pantoprazole 40 mg EC Tab PO SCH (09:31)
[2017-05-18] MEDS: Enoxaparin 40 mg Syringe SC SCH (09:49)
[2017-05-18] MEDS ORDERED: Oxycodone/Acetaminophen 5/325 mg Tab PO ONE (10:45)
--- NOTE | 2017-05-18 11:02 | CP.PCM.PN ---
Subjective - Date & Time of Evaluation Date of Evaluation: 05/18/17 Time of Evaluation: 11:00 - Subjective Subjective: Progress note for Dr. Arce's Service This patient is stable for discharge as per Dr. Florin Arce. Her CT scan yesterday was negative, she is not symptomatic and she is currently medically stable. The patient is to follow up with Dr. Arce within 2-3 days for close follow up. She will also need routine examinations as per GI prevention measures- follow up with GI needed. She is to resume all home medications. Med rec completed. Case was discussed with Dr. Florin Arce All management as per Dr. Florin Arce Objective - Vital Signs/Intake and Output Vital Signs (last 24 hours): Temp Pulse Resp BP Pulse Ox 97.6 F 64 20 98/63 L 98 05/18/17 07:30 05/18/17 07:30 05/18/17 07:30 05/18/17 07:30 05/18/17 07:30 Intake and Output: 05/18/17 05/18/17 06:59 18:59 Intake Total 1500 Balance 1500 - Medications Medications: Current Medications Acetaminophen (Tylenol 325mg Tab) 650 mg PO Q6 PRN PRN Reason: Headache Albuterol (Ventolin Hfa 90 Mcg/Actuation (8 G)) 2 puff IH RQ6 [facility] Last Admin: 05/18/17 08:12 Dose: Not Given Aspirin (Aspirin) 325 mg PO DAILY [facility] Last Admin: 05/18/17 09:49 Dose: 325 mg Docusate Sodium (Colace) 100 mg PO BID [facility] Last Admin: 05/18/17 09:32 Dose: 100 mg Enoxaparin Sodium (Lovenox) 40 mg SC DAILY [facility] Last Admin: 05/18/17 09:49 Dose: 40 mg Gabapentin (Neurontin) 800 mg PO TID [facility] Last Admin: 05/18/17 09:33 Dose: 800 mg Dextrose/Sodium Chloride (Dextrose 5%/0.45% Ns 1000 Ml) 1,000 mls @ 100 mls/hr IV .Q10H [facility] Last Admin: 05/17/17 17:42 Dose: 100 mls/hr Insulin Aspart (Novolog) 0 unit SC ACHS [facility] PRN Reason: Protocol Last Admin: 05/18/17 07:52 Dose: Not Given Metoprolol Tartrate (Lopressor) 50 mg PO DAILY [facility] Last Admin: 05/18/17 09:33 Dose: 50 mg Montelukast Sodium (Singulair) 10 mg PO HS [facility] Last Admin: 05/17/17 22:02 Dose: 10 mg Pantoprazole Sodium (Protonix Ec Tab) 40 mg PO DAILY [facility] Last Admin: 05/18/17 09:31 Dose: 40 mg Fluticasone/Salmeterol (Advair Diskus 250/50) 1 puff INH RQ12 [facility] Last Admin: 05/18/17 08:12 Dose: Not Given - Labs Labs: 05/14/17 21:54 05/14/17 21:54 PT 11.2 SECONDS (9.7-12.2) 05/14/17 21:54 INR 1.0 05/14/17 21:54 APTT 36 SECONDS (21-34) H 05/14/17 21:54
[2017-05-18] MEDS: Dextrose 5%/0.45% NS 1,000 ML IV SCH (11:30)
--- NOTE | 2017-05-19 21:43 | CARD ---
APPROVED REPORT EKG Measurement Heart [id number] <Conclusion> Normal sinus rhythm
== END 2017-05-18 12:17 | disposition home or self-care (01) ==
LOC: C.ER 20:31 → C.6T 05-15 00:21 → C.5S 05-15 00:21 → C.9E 05-15 00:21
PROVIDERS: ADMIT Internal Medicine Nephrology; ATTEND Internal Medicine Nephrology
DX: K56.7 Ileus, unspecified (principal); I25.10 Atherosclerotic heart disease of native coronary artery without angina pectoris; J45.20 Mild intermittent asthma, uncomplicated; K52.9 Noninfective gastroenteritis and colitis, unspecified; G89.29 Other chronic pain; I10 Essential (primary) hypertension; E11.9 Type 2 diabetes mellitus without complications
CPT/HCPCS: 36415; 71045; 74018; 74176; 74177; 80053; 81001; 82248; 82948; 83605; 83690; 83880; 84484; 85025; 85378; 85610; 85730; 90674; 93005; 94640; 99285; G0008; G0378; J1650; J7040; J7042; Q9966; Q9967